=== PATIENT | male | born 2000 | race Asian ===

== ENCOUNTER → 2020-10-05 | Outpatient (CLI) | payer OTHER ==
[~2020-10-05] MED LIST: GADOTERATE 7.5 MMOL/15ML SYR ONE
== END | disposition home or self-care (01) ==
LOC: RAD 15:10
PROVIDERS: ATTEND Family Medicine
DX: I67.1 Cerebral aneurysm, nonruptured (principal)
CPT/HCPCS: 70544; 70553; A9575